=== PATIENT | female | born 1985 | race American Indian/Alaskan Native ===

== ENCOUNTER 2020-11-06 16:28 | Emergency (ER) | payer MEDICAID ==
[2020-11-06 16:36] VITALS: BP 137/82
--- NOTE | 2020-11-06 17:10 | Emergency Department Report ---
ED Abdominal Pain HPI - General Chief Complaint: Abdominal Pain Stated Complaint: ABD PAIN Time Seen by Provider: 11/06/20 16:39 Source: patient Mode of arrival: Ambulatory Limitations: No Limitations - History of Present Illness Initial Comments: pt is a 34 yo female who presents to the ED with c/o lower abdominal cramping since 10/20/2020. she states she had a tubal ligation 10 years ago and is concerned she may be . she states she had two menstrual cycles in September. she states that on oct 20 and she had vaginal spotting but did not have a complete menstrual cycle which she would consider her regular cycle. she states she has occasional nausea. she denies any dysuria, fever, v/d, abnormal vaginal discharge. PMHx none. allergy:sulfa. she has not seen an [facility] for this complaint. - Related Data Previous Rx's Medication Instructions Recorded Last Taken Type methylPREDNISolone [Medrol 4MG 4 mg PO ONCE #1 tab.ds.pk 01/29/20 Unknown Rx DOSEPAK (21 tabs)] traMADoL [Ultram 50 MG tab] 50 mg PO Q6HR PRN #12 tablet 01/29/20 Unknown Rx Naproxen [EC-Naprosyn] 500 mg PO BID PRN #14 tablet. 11/06/20 Unknown Rx Allergies Allergy/AdvReac Type Severity Reaction Status Date / Time Sulfa (Sulfonamide Allergy Hives Verified 01/29/20 10:17 Antibiotics) ED Review of Systems ROS: Stated complaint: ABD PAIN Other details as noted in HPI Comment: All other systems reviewed and negative ED Past Medical Hx - Past Medical History Previous Medical History?: No - Surgical History Past Surgical History?: Yes Additional Surgical History: tubal ligation - Social History Smoking Status: Never Smoker Substance Use Type: None - Medications Home Medications: Home Medications Medication Instructions Recorded Confirmed Last Taken Type methylPREDNISolone [Medrol 4MG 4 mg PO ONCE #1 tab.ds.pk 01/29/20 Unknown Rx DOSEPAK (21 tabs)] traMADoL [Ultram 50 MG tab] 50 mg PO Q6HR PRN #12 tablet 01/29/20 Unknown Rx Naproxen [EC-Naprosyn] 500 mg PO BID PRN #14 tablet. 11/06/20 Unknown Rx ED Physical Exam - General Limitations: No Limitations General appearance: alert, in no apparent distress - Head Head exam: Present: atraumatic, normocephalic - Eye Eye exam: Present: normal appearance - ENT ENT exam: Present: mucous membranes moist - Respiratory Respiratory exam: Present: normal lung sounds bilaterally. Absent: respiratory distress, wheezes, rales, rhonchi, stridor, chest wall tenderness, accessory muscle use, decreased breath sounds, prolonged expiratory - Cardiovascular Cardiovascular Exam: Present: regular rate, normal rhythm, normal heart sounds. Absent: systolic murmur, diastolic murmur, rubs, gallop - GI/Abdominal GI/Abdominal exam: Present: soft, normal bowel sounds. Absent: distended, tenderness, guarding, rebound, rigid - Neurological Exam Neurological exam: Present: alert, oriented X3 - Psychiatric Psychiatric exam: Present: normal affect, normal mood - Skin Skin exam: Present: warm, dry, intact, normal color. Absent: rash ED Course Vital Signs 11/06/20 16:32 Temperature 98.4 F Pulse Rate 87 Respiratory 18 Rate Blood Pressure 137/82 O2 Sat by Pulse 100 Oximetry ED Medical Decision Making - Lab Data Result diagrams: 11/06/20 16:54 11/06/20 16:54 Lab Results 11/06/20 11/06/20 11/06/20 Range/Units 16:54 16:54 16:54 WBC 7.1 (4.5-11.0) K/mm3 RBC 4.17 (3.65-5.03) M/mm3 Hgb 12.7 (10.1-14.3) gm/dl Hct 37.8 (30.3-42.9) % MCV 91 (79-97) fl MCH 30 (28-32) pg MCHC 34 (30-34) % RDW 13.4 (13.2-15.2) % Plt Count 320 (140-440) K/mm3 Lymph % (Auto) 21.7 (13.4-35.0) % [place] % (Auto) 9.3 H (0.0-7.3) % Eos % (Auto) 0.5 (0.0-4.3) % Baso % (Auto) 0.7 (0.0-1.8) % Lymph # (Auto) 1.5 (1.2-5.4) K/mm3 [place] # (Auto) 0.7 (0.0-0.8) K/mm3 Eos # (Auto) 0.0 (0.0-0.4) K/mm3 Baso # (Auto) 0.0 (0.0-0.1) K/mm3 Seg Neutrophils % 67.8 (40.0-70.0) % Seg Neutrophils # 4.8 (1.8-7.7) K/mm3 Sodium 140 (137-145) mmol/L Potassium 3.4 L (3.6-5.0) mmol/L Chloride 107.6 H (98-107) mmol/L Carbon Dioxide 24 (22-30) mmol/L Anion Gap 12 mmol/L BUN 12 (7-17) mg/dL Creatinine 0.7 (0.6-1.2) mg/dL Estimated GFR > 60 ml/min BUN/Creatinine Ratio 17 % Glucose 91 (65-100) mg/dL Calcium 8.5 (8.4-10.2) mg/dL Total Bilirubin 0.80 (0.1-1.2) mg/dL AST 22 (5-40) units/L ALT 13 (7-56) units/L Alkaline Phosphatase 64 (35-129) units/L Total Protein 6.9 (6.3-8.2) g/dL Albumin 3.9 (3.9-5) g/dL Albumin/Globulin Ratio 1.3 % HCG, Quant < 2 (0-4) mIU/mL Urine Color (Yellow) Urine Turbidity (Clear) Urine pH (5.0-7.0) Ur Specific [place] (1.003-1.030) Urine Protein (Negative) mg/dL Urine Glucose (UA) (Negative) mg/dL Urine Ketones (Negative) mg/dL Urine Blood (Negative) Urine Nitrite (Negative) Urine Bilirubin (Negative) Urine Urobilinogen (<2.0) mg/dL Ur Leukocyte Esterase (Negative) Urine WBC (Auto) (0.0-6.0) /HPF Urine RBC (Auto) (0.0-6.0) /HPF U Epithel Cells (Auto) (0-13.0) /HPF Urine Mucus /HPF 11/06/20 Range/Units 17:26 WBC (4.5-11.0) K/mm3 RBC (3.65-5.03) M/mm3 Hgb (10.1-14.3) gm/dl Hct (30.3-42.9) % MCV (79-97) fl MCH (28-32) pg MCHC (30-34) % RDW (13.2-15.2) % Plt Count (140-440) K/mm3 Lymph % (Auto) (13.4-35.0) % [place] % (Auto) (0.0-7.3) % Eos % (Auto) (0.0-4.3) % Baso % (Auto) (0.0-1.8) % Lymph # (Auto) (1.2-5.4) K/mm3 [place] # (Auto) (0.0-0.8) K/mm3 Eos # (Auto) (0.0-0.4) K/mm3 Baso # (Auto) (0.0-0.1) K/mm3 Seg Neutrophils % (40.0-70.0) % Seg Neutrophils # (1.8-7.7) K/mm3 Sodium (137-145) mmol/L Potassium (3.6-5.0) mmol/L Chloride (98-107) mmol/L Carbon Dioxide (22-30) mmol/L Anion Gap mmol/L BUN (7-17) mg/dL Creatinine (0.6-1.2) mg/dL Estimated GFR ml/min BUN/Creatinine Ratio % Glucose (65-100) mg/dL Calcium (8.4-10.2) mg/dL Total Bilirubin (0.1-1.2) mg/dL AST (5-40) units/L ALT (7-56) units/L Alkaline Phosphatase (35-129) units/L Total Protein (6.3-8.2) g/dL Albumin (3.9-5) g/dL Albumin/Globulin Ratio % HCG, Quant (0-4) mIU/mL Urine Color Yellow (Yellow) Urine Turbidity Slightly-cloudy (Clear) Urine pH 5.0 (5.0-7.0) Ur Specific [place] 1.031 H (1.003-1.030) Urine Protein 100 mg/dl (Negative) mg/dL Urine Glucose (UA) Neg (Negative) mg/dL Urine Ketones Tr (Negative) mg/dL Urine Blood Sm (Negative) Urine Nitrite Neg (Negative) Urine Bilirubin Neg (Negative) Urine Urobilinogen < 2.0 (<2.0) mg/dL Ur Leukocyte Esterase Tr (Negative) Urine WBC (Auto) 2.0 (0.0-6.0) /HPF Urine RBC (Auto) 3.0 (0.0-6.0) /HPF U Epithel Cells (Auto) 12.0 (0-13.0) /HPF Urine Mucus 1+ /HPF - Medical Decision Making pt is a 34 yo female who presents to the ED with c/o lower abdominal cramping since 10/20/2020. she states she had a tubal ligation 10 years ago and is concerned she may be . she states she had two menstrual cycles in September. she states that on oct 20 and she had vaginal spotting but did not have a complete menstrual cycle which she would consider her regular cycle. she states she has occasional nausea. she denies any dysuria, fever, v/d, abnormal vaginal discharge. PMHx none. allergy:sulfa. she has not seen an [facility] for this complaint. Vitals are stable. no abdominal tenderness on exam, no guarding, no rebound, no rigidity, normal bowel sounds, no peritoneal signs. Labs are stable, very mild hypokalemia, discussed increasing oral potassium intake. UA without evidence of UTI. hCG quant is less than 2. Patient is presenting for abnormal menstrual cycles, she was concerned that she was , hCG quant is negative. Patient be referred to [facility] for further evaluation. She is having no symptoms of UTI or STD, do not suspect PID. She denies current concerns for STDs. She has no clinical signs of ovarian torsion or tubo-ovarian abscess. Patient does not need emergent ultrasound, will refer to [facility] for outpatient ultrasound. Advised patient please take medication as prescribed as needed. increase your water intake. eat a potassium rich diet. follow up with an [facility]. follow up with a primary care doctor. return to the emergency room for any new or worsening symptoms. - Differential Diagnosis , UTI, fibroids, ovarian cyst, adenomyosis, endometriosis Critical care attestation.: If time is entered above; I have spent that time in minutes in the direct care of this critically ill patient, excluding procedure time. ED Disposition Clinical Impression: Abdominal cramping Disposition: -01 TO HOME OR SELFCARE Is pt being admited?: No Does the pt Need Aspirin: No Condition: Stable Instructions: Abdominal Pain, Adult, Hypokalemia, Abdominal Pain (ED) Additional Instructions: please take medication as prescribed as needed. increase your water intake. eat a potassium rich diet. follow up with an [facility]. follow up with a primary care doctor. return to the emergency room for any new or worsening symptoms. Prescriptions: Naproxen [EC-Naprosyn] 500 mg PO BID PRN #14 tablet.dr BACK Reason: pain Referrals: STAN VALLECILLO MD [Staff Physician] - 2-3 Days [facility] [Provider Group] - 2-3 Days [facility] [Provider Group] - 2-3 Days Time of Disposition: 17:55 Print Language: BULGARIAN
[2020-11-06 17:21] LABS: Basophils % (Auto) 0.7 % (0.0-1.8); Eosinophils % (Auto) 0.5 % (0.0-4.3); Hematocrit 37.8 % (30.3-42.9); Hemoglobin 12.7 gm/dl (10.1-14.3); Lymphocytes # (Auto) 1.5 K/mm3 (1.2-5.4); Lymphocytes % (Auto) 21.7 % (13.4-35.0); Mean Corpuscular HGB Conc 34 % (30-34); Mean Corpuscular Volume 91 fl (79-97); Monocytes # (Auto) 0.7 K/mm3 (0.0-0.8); Monocytes % (Auto) 9.3 % (0.0-7.3); Platelet Count 320 K/mm3 (140-440); Red Blood Count 4.17 M/mm3 (3.65-5.03); Red Cell Distribution Width 13.4 % (13.2-15.2)
[2020-11-06 17:41] LABS: Bilirubin,Urine NEG (Negative); Blood,Urine SM (Negative); Color,Urine Yellow (Yellow); Mucus,Urine 1+ /HPF; Urobilinogen,Urine < 2.0 mg/dL (<2.0)
[2020-11-06 17:43] LABS: Alanine Aminotransferase 13 units/L (7-56); Albumin 3.9 g/dL (3.9-5); BUN/Creatinine Ratio 17; Blood Urea Nitrogen 12 mg/dL (7-17); Calcium 8.5 mg/dL (8.4-10.2); Hemolysis Index 5
== END 2020-11-06 18:16 | disposition home or self-care (01) ==
LOC: ED 16:28
DX: R10.30 Lower abdominal pain, unspecified (principal); Z98.51 Tubal ligation status; Z79.899 Other long term (current) drug therapy; Z88.2 Allergy status to sulfonamides
CPT/HCPCS: 36415; 80053; 81001; 84702; 85025

== ENCOUNTER 2021-01-19 21:25 | Inpatient (IN) | payer MEDICAID ==
[2021-01-19] MEDS ORDERED: dexAMETHasone 20 MG/5 ML VIAL IV ONE (21:29)
[2021-01-19] MEDS ORDERED: diphenhydrAMINE 50 MG/ML VIAL IV ONE (21:29)
[2021-01-19] MEDS ORDERED: ACETAMINOPHEN 500 MG TAB PO ONE (21:29)
[2021-01-19] MEDS ORDERED: METOCLOPRAMIDE 10 MG/2 ML INJ IV ONE (21:29)
--- NOTE | 2021-01-19 21:34 | Event Note ---
ED Screening Note Date of service: 01/19/21 Time: 21:31 ED Screening Note: pt is a 5 y/o aaf with hx of migraine headache , states she was seen by ophthalmology today advised to report to ed for decrease vision and headache onset today, pt state headache is 6/10 sharp radiating to right eye with decreased vision described as "gao and black spot" pt denies fever or chills no trauma, headache is in same location as previous headache in past This initial assessment/diagnostic orders/clinical plan/treatment(s) is/are subject to change based on patients health status, clinical progression and re- assessment by fellow clinical providers in the ED. Further treatment and workup at subsequent clinical providers discretion. Patient/guardian urged not to elope from the ED as their condition may be serious if not clinically assessed and managed. Initial orders include: ct head w/o constrast , decadron, reglan, benadryl, tylenol.
[2021-01-19 21:54] LABS: Basophils # (Auto) 0.1 K/mm3 (0.0-0.1); Basophils % (Auto) 1.1 % (0.0-1.8); Eosinophils % (Auto) 0.7 % (0.0-4.3); Hematocrit 38.6 % (30.3-42.9); Lymphocytes % (Auto) 28.8 % (13.4-35.0); Mean Corpuscular HGB Conc 34 % (30-34); Mean Corpuscular Volume 91 fl (79-97); Monocytes # (Auto) 0.6 K/mm3 (0.0-0.8); Monocytes % (Auto) 8.8 % (0.0-7.3); Platelet Count 381 K/mm3 (140-440); Red Blood Count 4.23 M/mm3 (3.65-5.03); Red Cell Distribution Width 14.1 % (13.2-15.2)
--- NOTE | 2021-01-19 22:11 | Cat Scan Report ---
CT HEAD WITHOUT CONTRAST INDICATION / CLINICAL INFORMATION: Pt complains of headache with decreased vision. TECHNIQUE: All CT scans at this location are performed using CT dose reduction for ALARA by means of automated e xposure control. COMPARISON: None available. FINDINGS: HEMORRHAGE: None. EXTRA-AXIAL SPACES: Normal in size and morphology for the patient's age. VENTRICULAR SYSTEM: Normal in size and morphology for the patient's age. CEREBRAL PARENCHYMA: No significant abnormality. No acute territorial infarct. MIDLINE SHIFT OR HERNIATION: None. CEREBELLUM / BRAINSTEM: No significant abnormality. ORBITS: Normal as visualized. SOFT TISSUES of HEAD: No significant abnormality. CALVARIUM: No significant abnormality. PARANASAL SINUSES / MASTOID AIR CELLS: Normal as visualized. ADDITIONAL FINDINGS: None. IMPRESSION: No acute intracranial abnormality. Signer Name: Ja Sheriff MD Signed: 01/19/2021 10:06 PM Workstation Name: [id number]
--- NOTE | 2021-01-19 22:25 | Emergency Department Report ---
ED Neuro Deficit HPI - General Chief Complaint: Neuro Symptoms/Deficit Stated Complaint: LOSS OF VISION/HEADACHE Time Seen by Provider: 01/19/21 22:11 Source: patient Mode of arrival: Ambulatory Limitations: No Limitations - History of Present Illness Initial Comments: Patient is 35 years old female with no significant past medical history. Patient stated that she was fine until beginning of October when she had painful loss of vision on the left side associated with numbness to the left upper and lower extremity. Patient stated the symptoms continue for few days and went away. She stated that she has been having headache since then. Patient stated that since yesterday she started having pain in her right eye this time associated with numbness of the left upper and lower extremity. Patient denied any head injury. She also denied any focal weakness, no bowel or bladder incontinence. Patient denied any family history of multiple sclerosis. -: days(s), month(s) Location: left arm, left leg History of same: Yes Associated Symptoms: denies other symptoms - Related Data Home Medications: Previous Rx's Medication Instructions Recorded Last Taken Type methylPREDNISolone [Medrol 4MG 4 mg PO ONCE #1 tab.ds.pk 01/29/20 Unknown Rx DOSEPAK (21 tabs)] traMADoL [Ultram 50 MG tab] 50 mg PO Q6HR PRN #12 tablet 01/29/20 Unknown Rx Naproxen [EC-Naprosyn] 500 mg PO BID PRN #14 tablet. 11/06/20 Unknown Rx Allergies/Adverse Reactions: Allergies Allergy/AdvReac Type Severity Reaction Status Date / Time Sulfa (Sulfonamide Allergy Hives Verified 01/29/20 10:17 Antibiotics) ED Review of Systems ROS: Stated complaint: LOSS OF VISION/HEADACHE Other details as noted in HPI Comment: All other systems reviewed and negative Constitutional: denies: chills, fever Respiratory: denies: cough, shortness of breath, SOB with exertion Cardiovascular: denies: chest pain, palpitations Gastrointestinal: denies: abdominal pain, nausea, vomiting, diarrhea Musculoskeletal: denies: back pain Neurological: numbness. denies: headache, weakness, paresthesias, confusion, abnormal gait ED Past Medical Hx - Past Medical History Previous Medical History?: No - Surgical History Past Surgical History?: Yes Additional Surgical History: tubal ligation - Social History Smoking Status: Never Smoker Substance Use Type: None - Medications Home Medications: Home Medications Medication Instructions Recorded Confirmed Last Taken Type methylPREDNISolone [Medrol 4MG 4 mg PO ONCE #1 tab.ds.pk 01/29/20 Unknown Rx DOSEPAK (21 tabs)] traMADoL [Ultram 50 MG tab] 50 mg PO Q6HR PRN #12 tablet 01/29/20 Unknown Rx Naproxen [EC-Naprosyn] 500 mg PO BID PRN #14 tablet. 11/06/20 Unknown Rx ED Neuro Physical Exam - General Limitations: No Limitations General appearance: alert, in no apparent distress Suspected Stroke: No - Head Head exam: Present: atraumatic, normocephalic, normal inspection - Eye Eye exam: Present: normal appearance, PERRL - ENT ENT exam: Present: normal exam, normal orophraynx, mucous membranes moist - Neck Neck exam: Present: normal inspection, full ROM. Absent: tenderness, meningismus - Respiratory Respiratory exam: Present: normal lung sounds bilaterally - Cardiovascular Cardiovascular Exam: Present: regular rate, normal rhythm, normal heart sounds - GI/Abdominal GI/Abdominal exam: Present: soft, normal bowel sounds. Absent: distended, tenderness, guarding, rebound, rigid, organomegaly, mass, bruit, pulsatile mass, hernia - Extremities Exam Extremities exam: Present: normal inspection, full ROM, normal capillary refill. Absent: tenderness, pedal edema, joint swelling, calf tenderness - Back Exam Back exam: Present: normal inspection, full ROM. Absent: CVA tenderness (R), CVA tenderness (L) - Neurological Exam Neurological exam: Present: alert, oriented X3, CN II-XII intact, normal gait, reflexes normal. Absent: motor sensory deficit - Psychiatric Psychiatric exam: Present: normal mood - Skin Skin exam: Present: warm, intact, normal color ED Course Vital Signs 01/19/21 01/19/21 21:28 22:30 Temperature 98.8 F Pulse Rate 90 Respiratory 18 15 Rate Blood Pressure 156/98 O2 Sat by Pulse 99 99 Oximetry - Lab Data Result diagrams: 01/19/21 21:33 01/19/21 21:33 Lab Results 01/19/21 01/19/21 Range/Units 21:33 21:33 WBC 7.0 (4.5-11.0) K/mm3 RBC 4.23 (3.65-5.03) M/mm3 Hgb 13.0 (10.1-14.3) gm/dl Hct 38.6 (30.3-42.9) % MCV 91 (79-97) fl MCH 31 (28-32) pg MCHC 34 (30-34) % RDW 14.1 (13.2-15.2) % Plt Count 381 (140-440) K/mm3 Lymph % (Auto) 28.8 (13.4-35.0) % [place] % (Auto) 8.8 H (0.0-7.3) % Eos % (Auto) 0.7 (0.0-4.3) % Baso % (Auto) 1.1 (0.0-1.8) % Lymph # (Auto) 2.0 (1.2-5.4) K/mm3 [place] # (Auto) 0.6 (0.0-0.8) K/mm3 Eos # (Auto) 0.0 (0.0-0.4) K/mm3 Baso # (Auto) 0.1 (0.0-0.1) K/mm3 Seg Neutrophils % 60.6 (40.0-70.0) % Seg Neutrophils # 4.2 (1.8-7.7) K/mm3 Sodium 140 (137-145) mmol/L Potassium 4.2 (3.6-5.0) mmol/L Chloride 105.0 (98-107) mmol/L Glucose 96 (65-100) mg/dL AST 24 (5-40) units/L ALT 11 (7-56) units/L Total Protein 7.6 (6.3-8.2) g/dL Albumin 3.9 (3.9-5) g/dL Albumin/Globulin Ratio 1.1 % - Radiology Data Radiology results: report reviewed - Medical Decision Making Patient is 35 years old female with no significant past medical history. Patient stated that she was fine until beginning of October when she had painful loss of vision on the left side associated with numbness to the left upper and lower extremity. Patient stated the symptoms continue for few days and went away. She stated that she has been having headache since then. Patient stated that since yesterday she started having pain in her right eye this time associated with numbness of the left upper and lower extremity. Patient denied any head injury. She also denied any focal weakness, no bowel or bladder incontinence. Patient denied any family history of multiple sclerosis. Labs reviewed and is unremarkable. CT brain is negative for acute finding. Patient symptoms is concerning for multiple sclerosis. Patient possibly have optic neuritis on the right side. Also other differential diagnoses include idiopathic intracranial hypertension. Patient received Solu-Medrol, morphine and Zofran. Patient will be admitted to the hospital for multiple sclerosis work-up and further management. I discussed the patient with , he agreed to admit the patient to medical service for further management. Critical care attestation.: If time is entered above; I have spent that time in minutes in the direct care of this critically ill patient, excluding procedure time. ED Disposition Clinical Impression: Acute right eye pain, Numbness on left side, Optic neuritis Disposition: OP ADMIT IP TO THIS HOSP Is pt being admited?: Yes Condition: Stable
[2021-01-19 22:26] LABS: Alanine Aminotransferase 11 units/L (7-56); Albumin 3.9 g/dL (3.9-5)
[2021-01-19] MEDS ORDERED: MORPHINE 4 MG/1 ML INJ IV ONE (22:34)
[2021-01-19] MEDS ORDERED: SODIUM CHLORIDE 0.9% 1000 ML 1,000 ML IV ONE (22:34)
[2021-01-19] MEDS ORDERED: ONDANSETRON 4 MG/2 ML INJ IV ONE (22:34)
[2021-01-19 22:39] LABS: Blood Urea Nitrogen 13 mg/dL (7-17); Calcium 9.4 mg/dL (8.4-10.2); Hemolysis Index 3
[2021-01-19 22:45] LABS: BUN/Creatinine Ratio 19
[2021-01-19] MEDS ORDERED: methylPREDNISolone Sod Suc 500 MG in SODIUM CHLORIDE 0.9% 100 ML IV ONE (23:00)
[2021-01-19] MEDS ORDERED: PROMETHAZINE 25 MG RECT SUPP PR PRN (23:47)
[2021-01-19] MEDS ORDERED: ACETAMINOPHEN 325 MG TAB PO PRN ×2 (23:47)
[2021-01-19] MEDS ORDERED: ONDANSETRON 4 MG/2 ML INJ IV PRN ×2 (23:47)
[2021-01-19] MEDS ORDERED: METOCLOPRAMIDE 10 MG TAB PO PRN (23:47)
[2021-01-19] MEDS ORDERED: MAGNESIUM HYDROXIDE (MOM) ORAL LIQD UDC PO PRN ×2 (23:47)
--- NOTE | 2021-01-20 00:03 | History and Physical Report ---
History of Present Illness Date of examination: 01/19/21 Date of admission: 01/19/2021 Chief complaint: Right eye Pain Left upper extremity numbness History of present illness: 35-year-old -Italian female with no significant past medical problems presenting to the emergency room today with left upper extremity numbness right eye pain. Symptoms were said to have started few days ago but later resolved however symptoms were stated to have started again today. She has been having headache over the past few days and also having right eye pain. Vision has been blurry on the right eye. She also indicates that she has been having a little difficulty with her speech. She denies any difficulty swallowing she denies any cough or shortness of breath, no chest pain, no nausea vomiting, no abdominal pain, no fever or chills, no hematuria or dysuria. Patient denies any sick contacts or any recent travel. Denies any contact with anyone with COVID-19. She had gone to see an radio television announcer regarding visual complaints and patient was encouraged to report to the emergency room for further evaluation. Work-up in the emergency room today including CT scan of the head, were within normal limits. Patient was given some IV steroid. Patient has been admitted for evaluation of her left upper extremity numbness and right eye pain. Consideration for multiple sclerosis is suspected. Past History Past Medical History: No medical history Past Surgical History: Other (Tubal Ligation) Social history: no significant social history Family history: no significant family history Medications and Allergies Allergies Allergy/AdvReac Type Severity Reaction Status Date / Time Sulfa (Sulfonamide Allergy Hives Verified 01/29/20 10:17 Antibiotics) Home Medications Medication Instructions Recorded Confirmed Last Taken Type methylPREDNISolone [Medrol 4MG 4 mg PO ONCE #1 tab.ds.pk 01/29/20 Unknown Rx DOSEPAK (21 tabs)] traMADoL [Ultram 50 MG tab] 50 mg PO Q6HR PRN #12 tablet 01/29/20 Unknown Rx Naproxen [EC-Naprosyn] 500 mg PO BID PRN #14 tablet. 11/06/20 Unknown Rx Active Meds: Active Medications Acetaminophen (Acetaminophen 325 Mg Tab) 650 mg PO Q4H PRN PRN Reason: Pain MILD(1-3)/Fever >100.5/ARAUJO Acetaminophen (Acetaminophen 325 Mg Tab) 650 mg PO Q4H PRN PRN Reason: Pain, Mild (1-3) Aspirin (Aspirin 325 Mg Tab) 325 mg PO QDAY ORI Atorvastatin Calcium (Atorvastatin 40 Mg Tab) 40 mg PO QHS ORI Bisacodyl (Bisacodyl 10 Mg Rect Supp) 10 mg MI QDAY PRN PRN Reason: Constipation Enoxaparin Sodium (Enoxaparin 40 Mg/0.4 Ml Inj) 40 mg SUB-Q QDAY@2200 ORI; Protocol Sodium Chloride (Nacl 0.9% 1000 Ml) 1,000 mls @ 250 mls/hr IV ONCE ONE Stop: 01/20/21 02:33 Last Admin: 01/19/21 22:54 Dose: 250 mls/hr Documented by: Magnesium Hydroxide (Magnesium Hydroxide (Mom) Oral Liqd Udc) 30 ml PO Q4H PRN PRN Reason: Constipation Magnesium Hydroxide (Magnesium Hydroxide (Mom) Oral Liqd Udc) 30 ml PO Q4H PRN PRN Reason: Constipation Metoclopramide HCl (Metoclopramide 10 Mg Tab) 10 mg PO Q6H PRN PRN Reason: Nausea And Vomiting Morphine Sulfate (Morphine 2 Mg/1 Ml Inj) 2 mg IV Q4H PRN PRN Reason: Pain, Moderate (4-6) Ondansetron HCl (Ondansetron 4 Mg/2 Ml Inj) 4 mg IV Q8H PRN PRN Reason: Nausea And Vomiting Ondansetron HCl (Ondansetron 4 Mg/2 Ml Inj) 4 mg IV Q8H PRN PRN Reason: Nausea And Vomiting Promethazine HCl (Promethazine 25 Mg Rect Supp) 25 mg MI Q6H PRN PRN Reason: Nausea And Vomiting Sodium Chloride (Sodium Chloride 0.9% 10 Ml Flush Syringe) 10 ml IV BID ORI Sodium Chloride (Sodium Chloride 0.9% 10 Ml Flush Syringe) 10 ml IV PRN PRN PRN Reason: LINE FLUSH Sodium Chloride (Sodium Chloride 0.9% 10 Ml Flush Syringe) 10 ml INJ PRN PRN PRN Reason: LINE FLUSH Review of Systems Constitutional: no fever, no chills Ears, nose, mouth and throat: no nasal congestion, no sore throat Cardiovascular: no chest pain, no palpitations Respiratory: no cough, no shortness of breath Gastrointestinal: no abdominal pain, no nausea, no vomiting, no diarrhea Genitourinary Female: no pelvic pain, no flank pain, no dysuria, no hematuria Musculoskeletal: no neck pain, no low back pain Integumentary: no rash, no pruritis Neurological: numbness (Left Upper Extremity), headaches, change in speech, loss of vision (Right Eye) Psychiatric: no anxiety, no depression Endocrine: no polyphagia, no polydipsia, no polyuria, no nocturia Exam - Constitutional Vitals: Temp Pulse Resp BP Pulse Ox 98.8 F 90 15 156/98 99 01/19/21 21:28 01/19/21 21:28 01/19/21 22:30 01/19/21 21:28 01/19/21 22:30 General appearance: Present: no acute distress, well-nourished - EENT Eyes: Present: PERRL, EOM intact. Absent: scleral icterus ENT: hearing intact, clear oral mucosa, dentition normal - Neck Neck: Present: supple, normal ROM - Respiratory Respiratory effort: normal Respiratory: bilateral: CTA - Cardiovascular Rhythm: regular Heart Sounds: Present: S1 & S2. Absent: gallop, systolic murmur, diastolic murmur, rub, click - Extremities Extremities: no ischemia, pulses intact, pulses symmetrical, No edema, normal temperature, normal color, Full ROM Peripheral Pulses: within normal limits - Abdominal General gastrointestinal: Present: soft, non-tender, non-distended, normal bowel sounds. Absent: mass - Integumentary Integumentary: Present: clear, warm, dry, normal turgor. Absent: rash - Musculoskeletal Musculoskeletal: strength equal bilaterally - Psychiatric Psychiatric: appropriate mood/affect, intact judgment & insight, memory intact - Neurologic Neurologic: CNII-XII intact, no focal deficits, moves all extremities Results - Labs CBC & Chem 7: 01/19/21 21:33 01/19/21 21:33 Labs: Abnormal lab results 01/19/21 Range/Units 21:33 [place] % (Auto) 8.8 H (0.0-7.3) % Assessment and Plan - Patient Problems (1) Optic neuritis Current Visit: No Status: Acute Plan to address problem: Patient commenced on IV steroids and analgesic medication. We will schedule patient for carotid Doppler, echocardiogram and MRI of the brain. (2) Numbness on left side Current Visit: No Status: Acute Plan to address problem: Etiology unclear. Will rule out CVA versus multiple sclerosis. Patient commenced on daily aspirin. Will await carotid Doppler, echocardiogram and MRI of the brain. Consult placed to neurology for evaluation. (3) DVT prophylaxis Current Visit: No Status: Acute Plan to address problem: Patient placed on subcutaneous Lovenox. (4) Full code status Current Visit: No Status: Acute Plan to address problem: Patient is a full code.
[2021-01-20] MEDS: MORPHINE 2 MG/1 ML INJ IV PRN ×3 (08:14→20:44)
--- NOTE | 2021-01-20 09:39 | Consultation ---
History of Present Illness Consult date: 01/20/21 Reason for Consult: Left Arm Weakness Chief complaint: Right Eye Pain and Left-sided weakness History of present illness: Patient is not in room during rounds. Past History Past Medical History: No medical history Past Surgical History: Other (Tubal Ligation) Social history: no significant social history Family history: no significant family history Medications and Allergies Allergies Allergy/AdvReac Type Severity Reaction Status Date / Time Sulfa (Sulfonamide Allergy Hives Verified 01/29/20 10:17 Antibiotics) Home Medications Medication Instructions Recorded Confirmed Last Taken Type methylPREDNISolone [Medrol 4MG 4 mg PO ONCE #1 tab.ds.pk 01/29/20 Unknown Rx DOSEPAK (21 tabs)] traMADoL [Ultram 50 MG tab] 50 mg PO Q6HR PRN #12 tablet 01/29/20 Unknown Rx Naproxen [EC-Naprosyn] 500 mg PO BID PRN #14 tablet. 11/06/20 Unknown Rx Active Meds: Active Medications Acetaminophen (Acetaminophen 325 Mg Tab) 650 mg PO Q4H PRN PRN Reason: Pain MILD(1-3)/Fever >100.5/ARAUJO Aspirin (Aspirin 325 Mg Tab) 325 mg PO QDAY ORI Atorvastatin Calcium (Atorvastatin 40 Mg Tab) 40 mg PO QHS ORI Bisacodyl (Bisacodyl 10 Mg Rect Supp) 10 mg NE QDAY PRN PRN Reason: Constipation Enoxaparin Sodium (Enoxaparin 40 Mg/0.4 Ml Inj) 40 mg SUB-Q QDAY@2200 ORI; Protocol Magnesium Hydroxide (Magnesium Hydroxide (Mom) Oral Liqd Udc) 30 ml PO Q4H PRN PRN Reason: Constipation Metoclopramide HCl (Metoclopramide 10 Mg Tab) 10 mg PO Q6H PRN PRN Reason: Nausea And Vomiting Morphine Sulfate (Morphine 2 Mg/1 Ml Inj) 2 mg IV Q4H PRN PRN Reason: Pain, Moderate (4-6) Last Admin: 01/20/21 08:14 Dose: 2 mg Documented by: Ondansetron HCl (Ondansetron 4 Mg/2 Ml Inj) 4 mg IV Q8H PRN PRN Reason: Nausea And Vomiting Promethazine HCl (Promethazine 25 Mg Rect Supp) 25 mg NE Q6H PRN PRN Reason: Nausea And Vomiting Sodium Chloride (Sodium Chloride 0.9% 10 Ml Flush Syringe) 10 ml IV BID ORI Sodium Chloride (Sodium Chloride 0.9% 10 Ml Flush Syringe) 10 ml IV PRN PRN PRN Reason: LINE FLUSH Physical Examination - Vital Signs Vital Signs: Vital Signs Temp Pulse Resp BP Pulse Ox 98.8 F 90 18 156/98 99 01/19/21 21:28 01/19/21 21:28 01/19/21 21:28 01/19/21 21:28 01/19/21 21:28 - Physical Exam Narrative exam: Patient is not in room during rounds. Results - Laboratory Findings CBC and BMP: 01/19/21 21:33 01/19/21 21:33 Abnormal Lab Findings: Abnormal Labs 01/19/21 21:33 [place] % (Auto) 8.8 H Assessment and Plan 35 yo female with headache with right eye pain and left-sided weakness. 1. Patient is not in room during rounds. If test is negative, recommend MRI Brain w/ wo contrast, MRV Head w/o contrast to r/o a cortical vein thrombosis and cta head/neck w/ wo contrast since ddx includes stroke, ms, neoplasm, vst/cvt, acephalgic migraine. 2. Recommend ophthalmology evaluation of right eye visual change. Branden Ramos MD Neurology
--- NOTE | 2021-01-20 11:16 | Cat Scan Report ---
CTA NECK WITH CONTRAST HISTORY: Stroke COMPARISON: None. TECHNIQUE: Routine CTA of the neck was performed. 3-D/MIP reformats were postprocessed. Percentage s tenosis is determined by direct quantitative measurements of diseased internal carotid artery diamete r compared with normal distal internal carotid artery reference segments or by criteria similar to NA SCET where applicable.All CT scans at this location are performed using CT dose reduction for ALARA b y means of automated exposure control CONTRAST: 100 ml of Omnipaque 300 FINDINGS: Aortic arch: No significant abnormality. Cervical vertebral arteries: No significant abnormality. Common carotid arteries: No significant abnormality. Carotid bifurcations: Normal Cervical internal carotid arteries: No significant abnormality. Additional findings: None. IMPRESSION: 1. No significant abnormality. Signer Name: Brant Mcgarry MD Signed: 01/20/2021 11:12 AM Workstation Name: [id number]
[2021-01-20] MEDS: ASPIRIN 325 MG TAB PO SCH (11:17)
--- NOTE | 2021-01-20 11:20 | Cat Scan Report ---
CTA HEAD WITH CONTRAST HISTORY: Left arm numbness; blurry vision for 3 days COMPARISON: None. TECHNIQUE: Routine non-contrast CT Head, CTA of the head and post-contrast CT Head are performed. 3-D /MIP reformats postprocessed. All CT scans at this location are performed using CT dose reduction for ALARA by means of automated exposure control CONTRAST: 100 ml of Omnipaque 350 FINDINGS: CTA Head: Intracranial vertebral arteries: No significant abnormality. Basilar artery: No significant abnormality. Posterior cerebral arteries: No significant abnormality. Intracranial internal carotid arteries: No significant abnormality. Anterior cerebral arteries: No significant abnormality. Middle cerebral arteries: No significant abnormality. Dural venous sinuses:Not optimally opacified. No significant abnormality. Additional findings: None. IMPRESSION: 1. No significant abnormality. Signer Name: Brant Mcgarry MD Signed: 01/20/2021 11:16 AM Workstation Name: [id number]
--- NOTE | 2021-01-20 11:25 | Magnetic Resonance Report ---
MRA HEAD WITHOUT CONTRAST HISTORY: Left arm numbness; blurry vision COMPARISON: None. TECHNIQUE: Routine MRA of the head is performed. 3-D/MIP reformats postprocessed. CONTRAST: None. FINDINGS: Intracranial vertebral arteries: No significant abnormality. Basilar artery: No significant abnormality. Posterior cerebral arteries: No significant abnormality. Intracranial internal carotid arteries: No significant abnormality. Anterior cerebral arteries: No significant abnormality. Middle cerebral arteries: No significant abnormality. Variants and anomalies:None Additional findings: None. IMPRESSION: No significant abnormality. Signer Name: Brant Mcgarry MD Signed: 01/20/2021 11:20 AM Workstation Name: [id number]
--- NOTE | 2021-01-20 11:35 | Magnetic Resonance Report ---
NONENHANCED and contrast-enhanced MR SCAN OF THE BRAIN: INDICATION / CLINICAL INFORMATION: left upper extremity numbness, right eye pain. TECHNIQUE: Multiplanar, multisequence MR images of the brain obtained before and after 16 mL of Clariscan COMPARISON: CT scan of the head from 01/19/2021 FINDINGS: ABNORMAL MRI SCAN BRAIN / INTRACRANIAL CONTENTS: No acute ischemia, acute hemorrhage, mass effect, midline shift, or hy drocephalus. No chronic infarct or atrophy. WHITE MATTER LESIONS: T2 hyperintense white matter lesions: Periventricular: More than 5 lesions contacting the ependymal surface Juxtacortical: Present in the right superior frontal gyrus Infratentorial: Present involving the anthony anteriorly on the right side, left middle cerebellar pedun kunal Optic nerves: In the transverse FLAIR images, there is suggestion of optic nerve lesion on the right side. We did not obtain FLAIR coronal or sagittal images. Cervicomedullary junction: No lesion in the cervicomedullary junction in the transverse FLAIR and T2- weighted images Enhancing lesions: None Lesions with restricted diffusion: None Overall disease burden: more than 20 lesions Parenchymal atrophy: No focal, regional or generalized volume loss Callosal atrophy: Not present T 1 black holes: Present around multiple lesions CRANIOCERVICAL JUNCTION: No significant abnormality. VASCULAR FLOW-VOIDS: No significant abnormality. ORBITS: Increased FLAIR signal intensity in the right optic nerve SINUSES / MASTOIDS: No significant abnormality of visualized sinuses and mastoid air cells. ADDITIONAL FINDINGS: None. IMPRESSION: 1. MR findings are consistent with demyelinating plaques No acute/subacute infarction Signer Name: Brant Mcgarry MD Signed: 01/20/2021 11:31 AM Workstation Name: [id number]
--- NOTE | 2021-01-20 12:53 | Progress Note ---
Assessment and Plan Assessment and plan: Neuro work-up so far: MRI brain; demyelinating plaques, no acute or subacute infarcts MRA head; no abnormality CT head without contrast; no acute abnormality. Carotid Doppler; less than 50% stenosis echo; EF 55 to 60%, no PFO CTA head; no abnormality CTA neck; no abnormality Right eye pain /?optic neuritis Current Visit: No Status: Acute Plan to address problem: Patient commenced on IV steroids and analgesic medication. Neurology following , neuro work-up is in progress Do not have ophthalmology service, will refer to steam service inspector After neuro evaluation is completed and if indicated Numbness and weakness on left side Current Visit: No Status: Acute Plan to address problem: Rule out CVA versus multiple sclerosis. Not a candidate for TPA Aspirin and statin Follow carotid Doppler, echocardiogram and MRI, MRA of the brain. Management per neurology PT OT rehab DVT prophylaxis Current Visit: No Status: Acute Plan to address problem: Patient placed on subcutaneous Lovenox. Full code status Current Visit: No Status: Acute Plan to address problem: Patient is a full code. We will closely monitor the patient and adjust management as needed Plan of care reviewed with the patient and her nurse Follow neuro evaluation and recommendations Disposition; follow neuro work-up; follow PT OT, follow neurology recom mendations 01/20/2021; patient feels slightly better Follow neuro evaluation and recommendations , extensive neuro work-up is in progress Continue supportive care, patient needs ophthalmology evaluation[service not available] Brief history; Patient is 35 years old female with no significant past medical history. Patient stated that she was fine until beginning of October when she had painful loss of vision on the left side associated with numbness to the left upper and lower extremity. Patient stated the symptoms continue for few days and went away. She stated that she has been having headache since then. Patient stated that since yesterday she started having pain in her right eye this time associated with numbness of the left upper and lower extremity. Patient denied any head injury. She also denied any focal weakness, no bowel or bladder incontinence. History Interval history: I have seen and examined the patient at the bedside this morning Patient's chart and medications reviewed Patient feels slightly better, Patient complains of headache right eye pain and left-sided weakness Neuro work-up is in progress Vital signs noted Hospitalist Physical - Constitutional Vitals: Temp Pulse Resp BP Pulse Ox 98.0 F 52 L 16 121/68 97 01/20/21 03:17 01/20/21 03:17 01/20/21 03:17 01/20/21 03:17 01/20/21 03:17 General appearance: Present: no acute distress, well-nourished - EENT Eyes: Absent: scleral icterus, conjunctival injection (Photophobia, pain) - Neck Neck: Present: supple, normal ROM - Respiratory Respiratory effort: normal Respiratory: bilateral: diminished, negative: rales, rhonchi, wheezing - Cardiovascular Rhythm: regular Heart Sounds: Present: S1 & S2 - Extremities Extremities: no ischemia, No edema - Abdominal General gastrointestinal: soft, non-tender, non-distended, normal bowel sounds - Integumentary Integumentary: Present: clear, warm - Psychiatric Psychiatric: appropriate mood/affect, cooperative - Neurologic Neurologic: moves all extremities Results - Labs CBC & Chem 7: 01/20/21 16:11 01/20/21 16:11 Labs: Laboratory Last Values WBC 7.0 K/mm3 (4.5-11.0) 01/19/21 21:33 RBC 4.23 M/mm3 (3.65-5.03) 01/19/21 21:33 Hgb 13.0 gm/dl (10.1-14.3) 01/19/21 21:33 Hct 38.6 % (30.3-42.9) 01/19/21 21:33 MCV 91 fl (79-97) 01/19/21 21:33 MCH 31 pg (28-32) 01/19/21 21:33 MCHC 34 % (30-34) 01/19/21 21:33 RDW 14.1 % (13.2-15.2) 01/19/21 21:33 Plt Count 381 K/mm3 (140-440) 01/19/21 21:33 Lymph % (Auto) 28.8 % (13.4-35.0) 01/19/21 21:33 Petroleum % (Auto) 8.8 % (0.0-7.3) H 01/19/21 21:33 Eos % (Auto) 0.7 % (0.0-4.3) 01/19/21 21:33 Baso % (Auto) 1.1 % (0.0-1.8) 01/19/21 21:33 Lymph # (Auto) 2.0 K/mm3 (1.2-5.4) 01/19/21 21:33 Petroleum # (Auto) 0.6 K/mm3 (0.0-0.8) 01/19/21 21:33 Eos # (Auto) 0.0 K/mm3 (0.0-0.4) 01/19/21 21:33 Baso # (Auto) 0.1 K/mm3 (0.0-0.1) 01/19/21 21:33 Seg Neutrophils % 60.6 % (40.0-70.0) 01/19/21 21: Seg Neutrophils # 4.2 K/mm3 (1.8-7.7) 01/19/21 21:33 Sodium 140 mmol/L (137-145) 01/19/21 21: Potassium 4.2 mmol/L (3.6-5.0) 01/19/21 21: Chloride 105.0 mmol/L (98-107) 01/19/21 21: Carbon Dioxide 25 mmol/L (22-30) 01/19/21 21: Anion Gap 14 mmol/L 01/19/21 21:33 BUN 13 mg/dL (7-17) 01/19/21 21: Creatinine 0.7 mg/dL (0.6-1.2) 01/19/21 21:33 Estimated GFR > 60 ml/min 01/19/21 21:33 BUN/Creatinine Ratio 19 % 01/19/21 21: Glucose 96 mg/dL (65-100) 01/19/21 21: Calcium 9.4 mg/dL (8.4-10.2) 01/19/21 21: Total Bilirubin 0.40 mg/dL (0.1-1.2) 01/19/21 21: AST 24 units/L (5-40) 01/19/21 21: ALT 11 units/L (7-56) 01/19/21 21:33 Alkaline Phosphatase 72 units/L (35-129) 01/19/21 21:33 Total Protein 7.6 g/dL (6.3-8.2) 01/19/21 21:33 Albumin 3.9 g/dL (3.9-5) 05/04/21 21:33 Albumin/Globulin Ratio 1.1 % 01/19/21 21:33 Klein/IV: Voiding Method Toilet Active Medications - Current Medications Current Medications: Generic Name Dose Route Start Last Admin Trade Name Freq PRN Reason Stop Dose Admin Acetaminophen 650 mg 01/19/21 23:47 Acetaminophen 325 Mg Tab PO Q4H PRN Pain MILD(1-3)/Fever >100.5/ARAUJO Aspirin 325 mg 01/20/21 10:00 01/20/21 11:17 Aspirin 325 Mg Tab PO 325 mg QDAY ORI Administration Atorvastatin Calcium 40 mg 01/20/21 22:00 Atorvastatin 40 Mg Tab PO QHS ORI Bisacodyl 10 mg 01/19/21 23:47 Bisacodyl 10 Mg Rect Supp SD QDAY PRN Constipation Enoxaparin Sodium 40 mg 01/20/21 22:00 Enoxaparin 40 Mg/0.4 Ml Inj SUB-Q QDAY@2200 [facility] Protocol Magnesium Hydroxide 30 ml 01/19/21 23:47 Magnesium Hydroxide (Mom) Oral Liqd Udc PO Q4H PRN Constipation Metoclopramide HCl 10 mg 01/19/21 23:47 Metoclopramide 10 Mg Tab PO Q6H PRN Nausea And Vomiting Morphine Sulfate 2 mg 01/19/21 23:47 01/20/21 08:14 Morphine 2 Mg/1 Ml Inj IV 2 mg Q4H PRN Administration Pain, Moderate (4-6) Ondansetron HCl 4 mg 01/19/21 23:47 Ondansetron 4 Mg/2 Ml Inj IV Q8H PRN Nausea And Vomiting Promethazine HCl 25 mg 01/19/21 23:47 Promethazine 25 Mg Rect Supp SD Q6H PRN Nausea And Vomiting Sodium Chloride 10 ml 01/20/21 10:00 01/20/21 11:17 Sodium Chloride 0.9% 10 Ml Flush Syringe IV 10 ml BID ORI Administration Sodium Chloride 10 ml 01/19/21 23:47 Sodium Chloride 0.9% 10 Ml Flush Syringe IV PRN PRN LINE FLUSH
--- NOTE | 2021-01-20 13:27 | Vascular Lab Report ---
"DUPLEX DOPPLER ULTRASOUND CAROTID, BILATERAL INDICATION / CLINICAL INFORMATION: stroke. COMPARISON: None available. FINDINGS: RIGHT CAROTID: - PLAQUE ESTIMATE (%): < 50% - CCA velocity: 82 cm/sec. - ICA peak systolic velocity: 106 cm/sec. - ICA/CCA PSV Ratio: 1.3 Right Vertebral Artery: Antegrade flow. LEFT CAROTID: - PLAQUE ESTIMATE: < 50% - CCA velocity: 71 cm/sec. - ICA peak systolic velocity: 107 cm/sec. - ICA/CCA PSV Ratio: 1.5 Left Vertebral Artery: Antegrade flow. IMPRESSION: 1. Right Internal Carotid Artery: Less than 50% diameter stenosis. 2. Left Internal Carotid Artery: Less than 50% diameter stenosis. Velocity criteria are extrapolated from diameter data as defined by the Society of Radiologists in [facility] Consensus Conference, Radiology 2003; 229;340-346. Degree of || ICA PSV || Plaque || ICA/CCA Stenosis (%) || (cm/sec) || estimate (%) || PSV Ratio Normal ............. || ...<125........... || ...None......... || ...<2.0 <50................... || ...<125........... || ......<50......... || ...<2.0 50-69................ || ..125-230...... || ......>50......... || 2.0-4.0 >70 but <100... || >230.............. || .......>50........ || ...>4.0 Near occlusion || High/low/none || ...visible....... || variable Total occlusion || ....None........... || ..no lumen... || ....N/A Signer Name: Santi LÓPEZ Signed: 01/20/2021 1:22 PM Workstation Name: [id number]
[2021-01-20 17:07] LABS: Hemoglobin 12.9 gm/dl (10.1-14.3); Mean Corpuscular HGB Conc 34 % (30-34); Mean Corpuscular Volume 91 fl (79-97); Platelet Count 351 K/mm3 (140-440); Red Blood Count 4.19 M/mm3 (3.65-5.03); Red Cell Distribution Width 14.4 % (13.2-15.2)
[2021-01-20 17:16] LABS: INR 0.97 (0.87-1.13)
[2021-01-20 18:10] LABS: Blood Urea Nitrogen 11 mg/dL (7-17); Calcium 9.2 mg/dL (8.4-10.2); Chol/HDL Ratio 2.37 %; HDL Cholesterol 82 mg/dL (40-59); Hemolysis Index 5; LDL Cholesterol,Direct 120 mg/dL (50-130)
[2021-01-20 18:13] LABS: Giant Platelets Rare; RBC Morphology Normal; Total Cells Counted 100
[2021-01-20 18:15] LABS: BUN/Creatinine Ratio 18
[2021-01-20 19:30] LABS: Erythrocyte Sedimentation Rate 39 mm/Hr (0-20)
[2021-01-20] MEDS: ENOXAPARIN 40 MG/0.4 ML INJ SUB-Q SCH (21:28)
[2021-01-20 22:04] LABS: HCG Qualitative,Urine Negative (Negative)
[2021-01-21] MEDS: MORPHINE 2 MG/1 ML INJ IV PRN ×5 (01:18→22:26)
[2021-01-21] MEDS: ASPIRIN 325 MG TAB PO SCH (09:47)
--- NOTE | 2021-01-21 11:13 | Progress Note ---
Assessment and Plan Assessment and plan: Assessment and Plan Assessment and plan: Neuro work-up so far: MRI brain; demyelinating plaques, no acute or subacute infarcts MRA head; no abnormality CT head without contrast; no acute abnormality. Carotid Doppler; less than 50% stenosis echo; EF 55 to 60%, no PFO CTA head; no abnormality CTA neck; no abnormality Right eye pain /?optic neuritis Current Visit: No Status: Acute Plan to address problem: Patient commenced on IV steroids and analgesic medication. 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 Not a candidate for TPA Aspirin and statin Follow carotid Doppler, echocardiogram and MRI, MRA of the brain. Management per neurology PT OT rehab DVT prophylaxis Current Visit: No Status: Acute Plan to address problem: Patient placed on subcutaneous Lovenox. Full code status Current Visit: No Status: Acute Plan to address problem: Patient is a full code. We will closely monitor the patient and adjust management as needed Plan of care reviewed with the patient and her nurse Follow neuro evaluation and recommendations Disposition; follow neuro work-up; follow PT OT, follow neurology recommendations 01/20/2021; patient feels slightly better Follow neuro evaluation and recommendations , extensive neuro work-up is in progress Continue supportive care, patient needs ophthalmology evaluation[service not available] 01/21/21 Patient complaining of difficulty in swallow. Speech path is consulted Also complaining of right eye pain and difficulty vision, left-sided blurry vision, left-sided numbness Follow neuro evaluation and recommendation. Call neurologist for further recommendation. Continue current management. Patient needs ophthalmology evaluation but service not available. Brief history; Patient is 35 years old female with no significant past medical history. Patient stated that she was fine until beginning of October when she had painful loss of vision on the left side associated with numbness to the left upper and lower extremity. Patient stated the symptoms continue for few days and went away. She stated that she has been having headache since then. Patient stated that since yesterday she started having pain in her right eye this time associated with numbness of the left upper and lower extremity. Patient denied any head injury. She also denied any focal weakness, no bowel or bladder incontinence. History Interval history: Patient is seen and examined the patient at the bedside this morning Patient's chart and medications reviewed Patient complained of difficulty in swallowing, speech path is consulted right eye pain and vision change, left-sided blurry vision and left-sided numbness Neuro work-up is in progress Vital signs noted Hospitalist Physical - Constitutional Vitals: Temp Pulse Resp BP Pulse Ox 98.2 F 57 L 14 137/68 97 01/21/21 03:54 01/20/21 16:46 01/21/21 03:54 01/21/21 03:54 01/20/21 16:46 General appearance: Present: no acute distress, well-nourished Results - Labs CBC & Chem 7: 01/20/21 16:11 01/20/21 16:11 Labs: Laboratory Last Values WBC 8.2 K/mm3 (4.5-11.0) 01/20/21 16:11 RBC 4.19 M/mm3 (3.65-5.03) 01/20/21 16:11 Hgb 12.9 gm/dl (10.1-14.3) 01/20/21 16:11 Hct 38.0 % (30.3-42.9) 01/20/21 16:11 MCV 91 fl (79-97) 01/20/21 16:11 MCH 31 pg (28-32) 01/20/21 16:11 MCHC 34 % (30-34) 01/20/21 16:11 RDW 14.4 % (13.2-15.2) 01/20/21 16:11 Plt Count 351 K/mm3 (140-440) 01/20/21 16:11 Lymph % (Auto) 28.8 % (13.4-35.0) 01/19/21 21:33 [place] % (Auto) 8.8 % (0.0-7.3) H 01/19/21 21:33 Eos % (Auto) 0.7 % (0.0-4.3) 01/19/21 21:33 Baso % (Auto) 1.1 % (0.0-1.8) 01/19/21 21:33 Lymph # (Auto) 2.0 K/mm3 (1.2-5.4) 01/19/21 21:33 [place] # (Auto) 0.6 K/mm3 (0.0-0.8) 01/19/21 21:33 Eos # (Auto) 0.0 K/mm3 (0.0-0.4) 01/19/21 21:33 Baso # (Auto) 0.1 K/mm3 (0.0-0.1) 01/19/21 21:33 Add Manual Diff Complete 01/20/21 16:11 Total Counted 100 01/20/21 16:11 Seg Neutrophils % Deputy Administrator 01/20/21 16:11 Seg Neuts % (Manual) 85.0 % (40.0-70.0) H 01/20/21 16:11 Lymphocytes % (Manual) 11.0 % (13.4-35.0) L 01/20/21 16:11 Monocytes % (Manual) 4.0 % (0.0-7.3) 01/20/21 16:11 Nucleated RBC % Not Reportable 01/20/21 16:11 Seg Neutrophils # 4.2 K/mm3 (1.8-7.7) 01/19/21 21:33 Seg Neutrophils # Man 7.0 K/mm3 (1.8-7.7) 01/20/21 16:11 Band Neutrophils # 0.0 K/mm3 01/20/21 16:11 Lymphocytes # (Manual) 0.9 K/mm3 (1.2-5.4) L 01/20/21 16:11 Abs React Lymphs (Man) 0.0 K/mm3 01/20/21 16:11 Monocytes # (Manual) 0.3 K/mm3 (0.0-0.8) 01/20/21 16:11 Eosinophils # (Manual) 0.0 K/mm3 (0.0-0.4) 01/20/21 16:11 Basophils # (Manual) 0.0 K/mm3 (0.0-0.1) 01/20/21 16:11 Metamyelocytes # 0.0 K/mm3 01/20/21 16:11 Myelocytes # 0.0 K/mm3 01/20/21 16:11 Promyelocytes # 0.0 K/mm3 01/20/21 16:11 Blast Cells # 0.0 K/mm3 01/20/21 16:11 WBC Morphology Not Reportable 01/20/21 16:11 Hypersegmented Neuts Not Reportable 01/20/21 16:11 Hyposegmented Neuts Not Reportable 01/20/21 16:11 Hypogranular Neuts Not Reportable 01/20/21 16:11 Smudge Cells Not Reportable 01/20/21 16:11 Toxic Granulation Not Reportable 01/20/21 16:11 Toxic Vacuolation Not Reportable 01/20/21 16:11 Dohle Bodies Not Reportable 01/20/21 16:11 Pelger-Huet Anomaly Not Reportable 01/20/21 16:11 Gabino Rods Not Reportable 01/20/21 16:11 Platelet Estimate Not Reportable 01/20/21 16:11 Clumped Platelets Not Reportable 01/20/21 16:11 Plt Clumps, EDTA Not Reportable 01/20/21 16:11 Large Platelets Not Reportable 01/20/21 16:11 Giant Platelets Rare 01/20/21 16:11 Platelet Satelliting Not Reportable 01/20/21 16:11 Plt Morphology Comment Not Reportable 01/20/21 16:11 RBC Morphology Normal 01/20/21 16:11 Dimorphic RBCs Not Reportable 01/20/21 16:11 Polychromasia Not Reportable 01/20/21 16:11 Hypochromasia Not Reportable 01/20/21 16:11 Poikilocytosis Not Reportable 01/20/21 16:11 Anisocytosis Not Reportable 01/20/21 16:11 Microcytosis Not Reportable 01/20/21 16:11 Macrocytosis Not Reportable 01/20/21 16:11 Spherocytes Not Reportable 01/20/21 16:11 Pappenheimer Bodies Not Reportable 01/20/21 16:11 Sickle Cells Not Reportable 01/20/21 16:11 Target Cells Not Reportable 01/20/21 16:11 Tear Drop Cells Not Reportable 01/20/21 16:11 Ovalocytes Not Reportable 01/20/21 16:11 Helmet Cells Not Reportable 01/20/21 16:11 [place] Bodies Not Reportable 01/20/21 16:11 [place] Rings Not Reportable 01/20/21 16:11 [place] Cells Not Reportable 01/20/21 16:11 Bite Cells Not Reportable 01/20/21 16:11 Crenated Cell Not Reportable 01/20/21 16:11 Elliptocytes Not Reportable 01/20/21 16:11 Acanthocytes (Spur) Not Reportable 01/20/21 16:11 Rouleaux Not Reportable 01/20/21 16:11 Hemoglobin C Crystals Not Reportable 01/20/21 16:11 Schistocytes Not Reportable 01/20/21 16:11 Malaria parasites Not Reportable 01/20/21 16:11 ESR 39 mm/Hr (0-20) 01/20/21 16:11 Mich Bodies Not Reportable 01/20/21 16:11 Hem Pathologist Commnt No 01/20/21 16:11 PT 12.8 Sec. (12.2-14.9) 01/20/21 16:11 INR 0.97 (0.87-1.13) 01/20/21 16:11 Sodium 138 mmol/L (137-145) 01/20/21 16:11 Potassium 4.3 mmol/L (3.6-5.0) 01/20/21 16:11 Chloride 102.7 mmol/L (98-107) 01/20/21 16:11 Carbon Dioxide 20 mmol/L (22-30) L 01/20/21 16:11 Anion Gap 20 mmol/L 01/20/21 16:11 BUN 11 mg/dL (7-17) 01/20/21 16:11 Creatinine 0.6 mg/dL (0.6-1.2) 01/20/21 16:11 Estimated GFR > 60 ml/min 01/20/21 16:11 BUN/Creatinine Ratio 18 % 01/20/21 16:11 Glucose 111 mg/dL (65-100) H 01/20/21 16:11 Calcium 9.2 mg/dL (8.4-10.2) 01/20/21 16:11 Total Bilirubin 0.40 mg/dL (0.1-1.2) 01/19/21 21:33 AST 24 units/L (5-40) 01/19/21 21:33 ALT 11 units/L (7-56) 01/19/21 21:33 Alkaline Phosphatase 72 units/L (35-129) 01/19/21 21:33 Total Protein 7.6 g/dL (6.3-8.2) 01/19/21 21:33 Albumin 3.9 g/dL (3.9-5) 01/19/21 21:33 Albumin/Globulin Ratio 1.1 % 01/19/21 21:33 Triglycerides 41 mg/dL (2-149) 01/20/21 16:11 Cholesterol 195 mg/dL (50-199) 01/20/21 16:11 LDL Cholesterol Direct 120 mg/dL (50-130) 01/20/21 16:11 HDL Cholesterol 82 mg/dL (40-59) H 01/20/21 16:11 Cholesterol/HDL Ratio 2.37 % 01/20/21 16:11 Urine HCG, Qual Negative (Negative) 01/19/21 21:46 - Imaging and Cardiology MRI - head: image reviewed Klein/IV: Voiding Method Toilet Active Medications - Current Medications Current Medications: Generic Name Dose Route Start Last Admin Trade Name Freq PRN Reason Stop Dose Admin Acetaminophen 650 mg 01/19/21 23:47 Acetaminophen 325 Mg Tab PO Q4H PRN Pain MILD(1-3)/Fever >100.5/ARAUJO Aspirin 325 mg 01/20/21 10:00 01/21/21 09:47 Aspirin 325 Mg Tab PO 325 mg QDAY ORI Administration Atorvastatin Calcium 40 mg 01/20/21 22:00 01/20/21 21:28 Atorvastatin 40 Mg Tab PO 40 mg QHS ORI Administration Bisacodyl 10 mg 01/19/21 23:47 Bisacodyl 10 Mg Rect Supp [place] QDAY PRN Constipation Enoxaparin Sodium 40 mg 01/20/21 22:00 01/20/21 21:28 Enoxaparin 40 Mg/0.4 Ml Inj SUB-Q 40 mg QDAY@2200 ORI Administration Protocol Magnesium Hydroxide 30 ml 01/19/21 23:47 Magnesium Hydroxide (Mom) Oral Liqd Udc PO Q4H PRN Constipation Metoclopramide HCl 10 mg 01/19/21 23:47 Metoclopramide 10 Mg Tab PO Q6H PRN Nausea And Vomiting Morphine Sulfate 2 mg 01/19/21 23:47 01/21/21 08:17 Morphine 2 Mg/1 Ml Inj IV 2 mg Q4H PRN Administration Pain, Moderate (4-6) Ondansetron HCl 4 mg 01/19/21 23:47 Ondansetron 4 Mg/2 Ml Inj IV Q8H PRN Nausea And Vomiting Promethazine HCl 25 mg 01/19/21 23:47 Promethazine 25 Mg Rect Supp [place] Q6H PRN Nausea And Vomiting Sodium Chloride 10 ml 01/20/21 10:00 01/21/21 09:47 Sodium Chloride 0.9% 10 Ml Flush Syringe IV 10 ml BID ORI Administration Sodium Chloride 10 ml 01/19/21 23:47 Sodium Chloride 0.9% 10 Ml Flush Syringe IV PRN PRN LINE FLUSH Nutrition/Malnutrition Assess - Malnutrition Assessment Minimum of two criteria: No - Attestation Statement I have reviewed and agreed w/ Malnutrition eval & tx plan: Yes
--- NOTE | 2021-01-21 15:33 | Progress Note ---
Assessment and Plan 35 yo female with headache with right eye pain and left-sided weakness. 1. Acute TABLEAU DEVELOPER Demyelination - stat solumedrol 500 mg iv q12 (system does not allow to scheduled 5 days of treatment) x 20 doses total w/ gi prophylaxis; recommend MRI Cervical / Thoracic Spine w/ wo contrast; csf evaluation needed; more detailed exam needed at bedside that is not allowed via teleneurology; ddx: nmo, ms, mog, sarcoidosis, et; cta reveals no evidence of vasculitis; serological testing include, hiv, esr, crp, ricardo, covid-19 for now. 2. Recommend ophthalmology evaluation of right eye visual change. 3. Spoke to Dr. Antonio regarding transfer for bedside neurologic evaluation/exam, ophthalmologic evaluation, need for MR C/T Spine and CSF evaluation (including opening/closing pressure). May also need to repeat MR studies as orbital sequences/fat suppression sequences needed and may not be available at this facility. Plan is for transfer by tomorrow morning. Branden Ramos MD Neurology Subjective Date of service: 01/21/21 Principal diagnosis: Loss of Vision, Numbness, Unsteadiness Interval history: 35 yo female who notes fatigue since September of this year. Notes an episode of blurred vision involving the left eye in October of this year and it improved but it did not resolve completely. Then, on 01/17/21, she woke up with signficant loss of right eye vision with right eye pain. She was seen by the eye clinic on 01/19/21 but also notes that on 01/19/21 her left arm/leg felt numb. She notes currently, new onset of right facial numbness today. She was given steroid initially upon admission. Underwent MR Brain w/ wo contrast, CTA Head/Neck w/ wo contrast and MRV Head wo contrast. She also notes unsteadiness of gait and notes a "spring-like" feeling of her back that goes down from the neck to the lower back. Notes a strong family hx of htn but no known MS, Sarcoidosis, Lupus, or other autoimmune diseases. Notes her child was just diagnosed with possible CP. Objective - Exam Narrative Exam: Gen: nad, well-nourished; Head: normocephalic; Eyes: no gaze deviation; no ptosis; ENT: normal vocalization; CVS: warm and well-perfused; Pulm: no respiratory distress; GI: appears non-distended; Ext: no cyanosis at distal extremities; Skin: no acute rash or hives at distal extremities; Heme: no pathologic bruising or ecchymosis at distal extremities; Neuro: alert, oriented to name, age, month, year, surroundings, no dysarthria, no aphasia, CN 2 - PERRL w/ mild sluggishness of the right eye; no aniscoria appreciated; OD - severe deficit of the right eye w/ only the left upper quadrant able to see finger movement; OS - severe visual field deficit in all directions w/ central vision being intact, CN 3, 4, 6 - EOMI, CN 5 - facial sensation decreased at right V2/V3 to light touch, CN 7 - facial movement symmetric, CN 8 - hearing grossly intact, CN 9, 10 - uvula midline, CN 11 - shrug symmetric, CN 12 - tongue midline; Motor - at least 4+/5 in all exts; Sensory - light touch symmetric at BUEs and patchy at distal BLEs, Cerebellar - fnf /hts intact, Gait -unsteadiness of stance and gait noted; - Vital Sign Vital Signs - 12hr 01/21/21 03:54 Temperature 98.2 F Respiratory 14 Rate Blood Pressure 137/68 - Laboratory Findings CBC and BMP: 01/20/21 16:11 01/20/21 16:11 Abnormal Lab Findings: Abnormal Labs 01/19/21 01/20/21 01/20/21 21:33 16:11 16:11 [place] % (Auto) 8.8 H Seg Neuts % (Manual) 85.0 H Lymphocytes % (Manual) 11.0 L Lymphocytes # (Manual) 0.9 L Carbon Dioxide 20 L Glucose 111 H HDL Cholesterol 82 H
[2021-01-21] MEDS ORDERED: methylPREDNISolone Sod Suc 500 MG in SODIUM CHLORIDE 0.9% 100 ML IV SCH (16:00)
[2021-01-21] MEDS ORDERED: FAMOTIDINE 20 MG/2 ML INJ IV SCH (18:00)
[2021-01-21] MEDS: ENOXAPARIN 40 MG/0.4 ML INJ SUB-Q SCH (22:17)
[2021-01-22] MEDS ORDERED: methylPREDNISolone Sod Suc 500 MG in SODIUM CHLORIDE 0.9% 100 ML IV SCH (10:00)
[2021-01-22] MEDS ORDERED: FAMOTIDINE 20 MG/2 ML INJ IV SCH (10:00)
[2021-01-22] MEDS: ASPIRIN 325 MG TAB PO SCH (10:04)
--- NOTE | 2021-01-22 14:20 | Progress Note ---
Assessment and Plan Assessment and plan: Assessment and Plan Assessment and plan: Neuro work-up so far: MRI brain; demyelinating plaques, no acute or subacute infarcts MRA head; no abnormality CT head without contrast; no acute abnormality. Carotid Doppler; less than 50% stenosis echo; EF 55 to 60%, no PFO CTA head; no abnormality CTA neck; no abnormality Right eye pain /?optic neuritis Current Visit: No Status: Acute Plan to address problem: Patient commenced on IV steroids and analgesic medication. Neurology following , neuro work-up is in progress Do not have ophthalmology service, will refer to telephone maintainer After neuro evaluation is completed and if indicated Numbness and weakness on left side Current Visit: No Status: Acute Plan to address problem: Rule out CVA versus multiple sclerosis. Not a candidate for TPA Aspirin and statin Follow carotid Doppler, echocardiogram and MRI, MRA of the brain. Management per neurology PT OT rehab DVT prophylaxis Current Visit: No Status: Acute Plan to address problem: Patient placed on subcutaneous Lovenox. Full code status Current Visit: No Status: Acute Plan to address problem: Patient is a full code. We will closely monitor the patient and adjust management as needed Plan of care reviewed with the patient and her nurse Follow neuro evaluation and recommendations Disposition; follow neuro work-up; follow PT OT, follow neurology recommendations 01/20/2021; patient feels slightly better Follow neuro evaluation and recommendations , extensive neuro work-up is in progress Continue supportive care, patient needs ophthalmology evaluation[service not available] 01/21/21 Patient complaining of difficulty in swallow. Speech path is consulted Also complaining of right eye pain and difficulty vision, left-sided blurry vision, left-sided numbness Follow neuro evaluation and recommendation. Call neurologist for further recommendation. Continue current management. Patient needs ophthalmology evaluation but service not available. 01/22/21 Patient complained of difficulty in swallowing, speech path is consulted right eye pain and vision change, left-sided blurry vision and left-sided numbness Try to transfer the patient for neurology evaluation and ophthalmology evaluation. Waiting for response from [facility] and [facility]. Continue Solu-Medrol 500 mg IV every 12 hours. During current management Brief history; Patient is 35 years old female with no significant past medical history. Patient stated that she was fine until beginning of October when she had painful loss of vision on the left side associated with numbness to the left upper and lower extremity. Patient stated the symptoms continue for few days and went away. She stated that she has been having headache since then. Patient stated that since yesterday she started having pain in her right eye this time associated with numbness of the left upper and lower extremity. Patient denied any head injury. She also denied any focal weakness, no bowel or bladder incontinence. History Interval history: Patient is seen and examined the patient at the bedside this morning Patient's chart and medications reviewed Patient complained of difficulty in swallowing, speech path is consulted right eye pain and vision change, left-sided blurry vision and left-sided numbness Try to transfer the patient for neurology evaluation and ophthalmology evaluation. Waiting for response from [facility] and [facility]. Vital signs noted Hospitalist Physical - Constitutional Vitals: Temp Pulse Resp BP Pulse Ox 98.3 F 73 22 155/90 98 01/22/21 10:42 01/22/21 10:42 01/22/21 10:42 01/22/21 10:42 01/22/21 10:42 General appearance: Present: no acute distress, well-nourished - EENT Eyes: Present: EOM intact ENT: hearing intact - Neck Neck: Present: supple, normal ROM - Respiratory Respiratory: bilateral: diminished - Cardiovascular Rhythm: regular Heart Sounds: Present: S1 & S2 - Extremities Extremities: no ischemia, pulses intact Peripheral Pulses: within normal limits - Abdominal General gastrointestinal: soft, non-tender, non-distended - Psychiatric Psychiatric: appropriate mood/affect, intact judgment & insight - Neurologic Neurologic: CNII-XII intact, moves all extremities Results - Labs CBC & Chem 7: 01/20/21 16:11 01/20/21 16:11 Labs: Laboratory Last Values WBC 8.2 K/mm3 (4.5-11.0) 01/20/21 16:11 RBC 4.19 M/mm3 (3.65-5.03) 01/20/21 16:11 Hgb 12.9 gm/dl (10.1-14.3) 01/20/21 16:11 Hct 38.0 % (30.3-42.9) 01/20/21 16:11 MCV 91 fl (79-97) 01/20/21 16:11 MCH 31 pg (28-32) 01/20/21 16:11 MCHC 34 % (30-34) 01/20/21 16:11 RDW 14.4 % (13.2-15.2) 01/20/21 16:11 Plt Count 351 K/mm3 (140-440) 01/20/21 16:11 Lymph % (Auto) 28.8 % (13.4-35.0) 01/19/21 21:33 Pierce % (Auto) 8.8 % (0.0-7.3) H 01/19/21 21:33 Eos % (Auto) 0.7 % (0.0-4.3) 01/19/21 21:33 Baso % (Auto) 1.1 % (0.0-1.8) 01/19/21 21:33 Lymph # (Auto) 2.0 K/mm3 (1.2-5.4) 01/19/21 21:33 Pierce # (Auto) 0.6 K/mm3 (0.0-0.8) 01/19/21 21: Eos # (Auto) 0.0 K/mm3 (0.0-0.4) 01/19/21 21: Baso # (Auto) 0.1 K/mm3 (0.0-0.1) 01/19/21 21:33 Add Manual Diff Complete 01/20/21 16:11 Total Counted 100 01/20/21 16:11 Seg Neutrophils % [employer] [place] 01/20/21 16:11 Seg Neuts % (Manual) 85.0 % (40.0-70.0) H 01/20/21 16:11 Lymphocytes % (Manual) 11.0 % (13.4-35.0) L 01/20/21 16:11 Monocytes % (Manual) 4.0 % (0.0-7.3) 01/20/21 16:11 Nucleated RBC % Not Reportable 01/20/21 16:11 Seg Neutrophils # 4.2 K/mm3 (1.8-7.7) 01/19/21 21:33 Seg Neutrophils # Man 7.0 K/mm3 (1.8-7.7) 01/20/21 16:11 Band Neutrophils # 0.0 K/mm3 01/20/21 16:11 Lymphocytes # (Manual) 0.9 K/mm3 (1.2-5.4) L 01/20/21 16:11 Abs React Lymphs (Man) 0.0 K/mm3 01/20/21 16:11 Monocytes # (Manual) 0.3 K/mm3 (0.0-0.8) 01/20/21 16:11 Eosinophils # (Manual) 0.0 K/mm3 (0.0-0.4) 01/20/21 16:11 Basophils # (Manual) 0.0 K/mm3 (0.0-0.1) 01/20/21 16:11 Metamyelocytes # 0.0 K/mm3 01/20/21 16:11 Myelocytes # 0.0 K/mm3 01/20/21 16:11 Promyelocytes # 0.0 K/mm3 01/20/21 16:11 Blast Cells # 0.0 K/mm3 01/20/21 16:11 WBC Morphology Not Reportable 01/20/21 16:11 Hypersegmented Neuts Not Reportable 01/20/21 16:11 Hyposegmented Neuts Not Reportable 01/20/21 16:11 Hypogranular Neuts Not Reportable 01/20/21 16:11 Smudge Cells Not Reportable 01/20/21 16:11 Toxic Granulation Not Reportable 01/20/21 16:11 Toxic Vacuolation Not Reportable 01/20/21 16:11 Dohle Bodies Not Reportable 01/20/21 16:11 Pelger-Huet Anomaly Not Reportable 01/20/21 16:11 Gabino Rods Not Reportable 01/20/21 16:11 Platelet Estimate Not Reportable 01/20/21 16:11 Clumped Platelets Not Reportable 01/20/21 16:11 Plt Clumps, EDTA Not Reportable 01/20/21 16:11 Large Platelets Not Reportable 01/20/21 16:11 Giant Platelets Rare 01/20/21 16:11 Platelet Satelliting Not Reportable 01/20/21 16:11 Plt Morphology Comment Not Reportable 01/20/21 16:11 RBC Morphology Normal 01/20/21 16:11 Dimorphic RBCs Not Reportable 01/20/21 16:11 Polychromasia Not Reportable 01/20/21 16:11 Hypochromasia Not Reportable 01/20/21 16:11 Poikilocytosis Not Reportable 01/20/21 16:11 Anisocytosis Not Reportable 01/20/21 16:11 Microcytosis Not Reportable 01/20/21 16:11 Macrocytosis Not Reportable 01/20/21 16:11 Spherocytes Not Reportable 01/20/21 16:11 Pappenheimer Bodies Not Reportable 01/20/21 16:11 Sickle Cells Not Reportable 01/20/21 16:11 Target Cells Not Reportable 01/20/21 16:11 Tear Drop Cells Not Reportable 01/20/21 16:11 Ovalocytes Not Reportable 01/20/21 16:11 Helmet Cells Not Reportable 01/20/21 16:11 [place] Bodies Not Reportable 01/20/21 16:11 [place] Rings Not Reportable 01/20/21 16:11 Gregory Cells Not Reportable 01/20/21 16:11 Bite Cells Not Reportable 01/20/21 16:11 Crenated Cell Not Reportable 01/20/21 16:11 Elliptocytes Not Reportable 01/20/21 16:11 Acanthocytes (Spur) Not Reportable 01/20/21 16:11 Rouleaux Not Reportable 01/20/21 16:11 Hemoglobin C Crystals Not Reportable 01/20/21 16:11 Schistocytes Not Reportable 01/20/21 16:11 Malaria parasites Not Reportable 01/20/21 16:11 ESR 39 mm/Hr (0-20) 01/20/21 16:11 [place] Bodies Not Reportable 01/20/21 16:11 Hem Pathologist Commnt No 01/20/21 16:11 PT 12.8 Sec. (12.2-14.9) 01/20/21 16:11 INR 0.97 (0.87-1.13) 01/20/21 16:11 Sodium 138 mmol/L (137-145) 01/20/21 16:11 Potassium 4.3 mmol/L (3.6-5.0) 01/20/21 16:11 Chloride 102.7 mmol/L (98-107) 01/20/21 16:11 Carbon Dioxide 20 mmol/L (22-30) L 01/20/21 16:11 Anion Gap 20 mmol/L 01/20/21 16:11 BUN 11 mg/dL (7-17) 01/20/21 16:11 Creatinine 0.6 mg/dL (0.6-1.2) 01/20/21 16:11 Estimated GFR > 60 ml/min 01/20/21 16:11 BUN/Creatinine Ratio 18 % 01/20/21 16:11 Glucose 111 mg/dL (65-100) H 01/20/21 16:11 Calcium 9.2 mg/dL (8.4-10.2) 01/20/21 16:11 Total Bilirubin 0.40 mg/dL (0.1-1.2) 01/19/21 21:33 AST 24 units/L (5-40) 01/19/21 21:33 ALT 11 units/L (7-56) 01/19/21 21:33 Alkaline Phosphatase 72 units/L (35-129) 01/19/21 21:33 Total Protein 7.6 g/dL (6.3-8.2) 01/19/21 21:33 Albumin 3.9 g/dL (3.9-5) 01/19/21 21:33 Albumin/Globulin Ratio 1.1 % 01/19/21 21:33 Triglycerides 41 mg/dL (2-149) 01/20/21 16:11 Cholesterol 195 mg/dL (50-199) 01/20/21 16:11 LDL Cholesterol Direct 120 mg/dL (50-130) 01/20/21 16:11 HDL Cholesterol 82 mg/dL (40-59) H 01/20/21 16:11 Cholesterol/HDL Ratio 2.37 % 01/20/21 16:11 Urine HCG, Qual Negative (Negative) 01/19/21 21:46 Klein/IV: Voiding Method Toilet Active Medications - Current Medications Current Medications: Generic Name Dose Route Start Last Admin Trade Name Freq PRN Reason Stop Dose Admin Acetaminophen 650 mg 01/19/21 23:47 Acetaminophen 325 Mg Tab PO Q4H PRN Pain MILD(1-3)/Fever >100.5/ARAUJO Aspirin 325 mg 01/20/21 10:00 01/22/21 10:04 Aspirin 325 Mg Tab PO 325 mg QDAY ORI Administration Atorvastatin Calcium 40 mg 01/20/21 22:00 01/21/21 22:17 Atorvastatin 40 Mg Tab PO 40 mg QHS ORI Administration Bisacodyl 10 mg 01/19/21 23:47 Bisacodyl 10 Mg Rect Supp [place] QDAY PRN Constipation Enoxaparin Sodium 40 mg 01/20/21 22:00 01/21/21 22:17 Enoxaparin 40 Mg/0.4 Ml Inj SUB-Q 40 mg QDAY@2200 ORI Administration Protocol Famotidine 20 mg 01/22/21 10:00 01/22/21 10:04 Famotidine 20 Mg/2 Ml Inj IV 20 mg BID ORI Administration Methylprednisolone Sodium 100 mls @ 200 mls/hr 01/22/21 10:00 01/22/21 10:16 Succinate 500 mg/ Sodium IV 01/26/21 10:29 200 mls/hr Chloride Q12HR ORI Administration Magnesium Hydroxide 30 ml 01/19/21 23:47 Magnesium Hydroxide (Mom) Oral Liqd Udc PO Q4H PRN Constipation Metoclopramide HCl 10 mg 01/19/21 23:47 Metoclopramide 10 Mg Tab PO Q6H PRN Nausea And Vomiting Morphine Sulfate 2 mg 01/19/21 23:47 01/21/21 22:26 Morphine 2 Mg/1 Ml Inj IV 2 mg Q4H PRN Administration Pain, Moderate (4-6) Ondansetron HCl 4 mg 01/19/21 23:47 Ondansetron 4 Mg/2 Ml Inj IV Q8H PRN Nausea And Vomiting Promethazine HCl 25 mg 01/19/21 23:47 Promethazine 25 Mg Rect Supp [place] Q6H PRN Nausea And Vomiting Sodium Chloride 10 ml 01/20/21 10:00 01/22/21 10:05 Sodium Chloride 0.9% 10 Ml Flush Syringe IV 10 ml BID ORI Administration Sodium Chloride 10 ml 01/19/21 23:47 Sodium Chloride 0.9% 10 Ml Flush Syringe IV PRN PRN LINE FLUSH Nutrition/Malnutrition Assess - Malnutrition Assessment Minimum of two criteria: No - Attestation Statement I have reviewed and agreed w/ Malnutrition eval & tx plan: Yes
--- NOTE | 2021-01-22 14:46 | Discharge Summary ---
Providers - Providers Date of Admission: 01/19/21 23:24 Date of discharge: 01/22/21 Attending physician: ERMA WILEY MD 01/19/21 23:47 Consult to Physician [CONS] Routine Comment: Consulting Provider: DALE DOWNS Physician Instructions: Reason For Exam: Left upper extremity 01/19/21 23:48 Occupational Therapy Evaluate and Treat [CONS] Routine Comment: Reason For Exam: Neuro deficits Physical Therapy Evaluation and Treat [CONS] Routine Comment: Reason For Exam: Neuro deficits 01/21/21 11:04 Speech Therapy Evaluation and Treat [CONS] Routine Reason For Exam: difficulty swallowing Primary care physician: HOTEL DESK CLERK Hospitalization Reason for admission: Right vision difficulty and pain. Left eye blurriness. Left upper and low Condition: Fair Disposition: DC/TX-70 ANOTHER TYPE HLTHCARE Final Discharge Diagnosis (Prints w/discharge instructions): Right eye vision difficulty and pain. Right facial numbness. Left eye blurriness. Left upper and lower extremity numbness Time spent for discharge: 40 - Discharge Diagnoses (1) Multiple sclerosis Status: Acute Core Measure Documentation - Palliative Care Palliative Care/ Comfort Measures: Not Applicable - Core Measures Any of the following diagnoses?: none Exam - Constitutional Vitals: Temp Pulse Resp BP Pulse Ox 98.3 F 73 22 155/90 98 01/22/21 10:42 01/22/21 10:42 01/22/21 10:42 01/22/21 10:42 01/22/21 10:42 General appearance: Present: no acute distress, well-nourished - EENT Eyes: Present: PERRL ENT: hearing intact, clear oral mucosa - Neck Neck: Present: supple, normal ROM - Respiratory Respiratory effort: normal Respiratory: bilateral: CTA - Cardiovascular Heart Sounds: Present: S1 & S2. Absent: rub, click - Extremities Extremities: pulses symmetrical, No edema Peripheral Pulses: within normal limits - Abdominal General gastrointestinal: Present: soft, non-tender, non-distended, normal bowel sounds Female genitourinary: Present: normal - Integumentary Integumentary: Present: clear, warm, dry - Musculoskeletal Musculoskeletal: gait normal, strength equal bilaterally - Psychiatric Psychiatric: appropriate mood/affect, intact judgment & insight - Neurologic Neurologic: moves all extremities, other (Right eye pain and difficulty in vision. Left eye blurriness. Left upper and lower extremity numbness. Right facial numbness) Plan Activity: advance as tolerated, no driving until cleared by PCP Diet: low fat, low cholesterol, low salt Follow up with: PRIMARY CARE, [Primary Care Provider] - 7 Days
[2021-01-22 19:59] VITALS: BP 131/78
== END 2021-01-22 20:00 | disposition short-term general hospital (02) | DRG 59 ==
LOC: ED 21:25 → 3A 23:24
PROVIDERS: ADMIT Internal Medicine Geriatric Medicine; ATTEND Hospitalist
DX: G35 Multiple sclerosis (principal); H46.9 Unspecified optic neuritis; H57.11 Ocular pain, right eye; R20.0 Anesthesia of skin; Z88.2 Allergy status to sulfonamides; Z98.51 Tubal ligation status
CPT/HCPCS: 36415; 70450; 70496; 70498; 70544; 70553; 80048; 80053; 80061; 81025; 85007; 85025; 85610; 85652; 93306; 93880; 96365; G0378; A9270-GY; A9575; J1100; J1200; J1650; J2270; J2765; J2930; J7030; Q9967

== ENCOUNTER 2021-07-28 14:23 | Emergency (ER) | payer MEDICAID ==
--- NOTE | 2021-07-28 14:35 | Emergency Department Report ---
ED General Adult HPI - General Stated complaint: FEEDING TIBE PUI?: No Time Seen by Provider: 07/28/21 14:34 Source: patient Mode of arrival: Ambulatory Limitations: No Limitations - History of Present Illness Initial comments: here for peg tube dressing change SEE DOWN TIME FORMS - Related Data Previous Rx's Medication Instructions Recorded Last Taken Type Acetaminophen [Acetaminophen TAB] 650 mg PO Q4H PRN tablet 01/22/21 Unknown Rx Aspirin 325 mg PO QDAY tablet 01/22/21 Unknown Rx AtorvaSTATin [Lipitor] 40 mg PO QHS tablet 01/22/21 Unknown Rx Enoxaparin 40 mg SUB-Q QDAY@2200 syringe 01/22/21 Unknown Rx Allergies Allergy/AdvReac Type Severity Reaction Status Date / Time Sulfa (Sulfonamide Allergy Hives Verified 01/29/20 10:17 Antibiotics) ED Review of Systems ROS: Stated complaint: FEEDING TIBE Other details as noted in HPI Comment: All other systems reviewed and negative ED Past Medical Hx - Past Medical History Previous Medical History?: Yes Hx Congestive Heart Failure: No Hx Diabetes: No Hx Asthma: No Hx COPD: No - Surgical History Past Surgical History?: Yes Additional Surgical History: tubal ligation - Family History Family history: no significant - Social History Smoking Status: Never Smoker Substance Use Type: None - Medications Home Medications: Home Medications Medication Instructions Recorded Confirmed Last Taken Type Acetaminophen [Acetaminophen TAB] 650 mg PO Q4H PRN tablet 01/22/21 Unknown Rx Aspirin 325 mg PO QDAY tablet 01/22/21 Unknown Rx AtorvaSTATin [Lipitor] 40 mg PO QHS tablet 01/22/21 Unknown Rx Enoxaparin 40 mg SUB-Q QDAY@2200 syringe 01/22/21 Unknown Rx ED Physical Exam - General General appearance: alert, in no apparent distress - Head Head exam: Present: atraumatic, normocephalic - Eye Eye exam: Present: normal appearance - ENT ENT exam: Present: mucous membranes moist - Neck Neck exam: Present: normal inspection - Respiratory Respiratory exam: Present: normal lung sounds bilaterally. Absent: respiratory distress - Cardiovascular Cardiovascular Exam: Present: regular rate, normal rhythm. Absent: systolic murmur, diastolic murmur, rubs, gallop - GI/Abdominal GI/Abdominal exam: Present: soft, normal bowel sounds - Extremities Exam Extremities exam: Present: normal inspection - Back Exam Back exam: Present: normal inspection - Neurological Exam Neurological exam: Present: alert, oriented X3 - Psychiatric Psychiatric exam: Present: normal affect, normal mood - Skin Skin exam: Present: warm, dry, intact, normal color. Absent: rash ED Medical Decision Making - Medical Decision Making SEE DOWN TIME FORMS Critical care attestation.: If time is entered above; I have spent that time in minutes in the direct care of this critically ill patient, excluding procedure time. ED Disposition Clinical Impression: Feeding tube dysfunction Qualifiers: Encounter type: initial encounter Qualified Code(s): T85.598A - Other mechanical complication of other gastrointestinal prosthetic devices, implants and grafts, initial encounter Disposition: 01 HOME / SELF CARE / HOMELESS Is pt being admited?: No Does the pt Need Aspirin: No Condition: Stable Referrals: PRIMARY CARE, [Primary Care Provider] - 3-5 Days Time of Disposition: 14:35
== END 2021-07-28 15:15 | disposition home or self-care (01) ==
LOC: ED 14:23
DX: K94.23 Gastrostomy malfunction (principal)
CPT/HCPCS: 99281

== ENCOUNTER 2021-08-23 09:22 | Emergency (ER) | payer MEDICAID ==
[2021-08-23 09:42] VITALS: BP 147/94
--- NOTE | 2021-08-23 10:29 | Emergency Department Report ---
HPI - General Chief Complaint: Abdominal Pain Time Seen by Provider: 08/23/21 09:58 - HPI HPI: 35-year-old -Filipino female presents to the emergency department with concern of infection around her feeding tube and abdominal pain. The patient had the PEG tube placed in May of this year, at [facility], secondary to her multiple sclerosis. She says that she has been having abdominal pain for "a while", and that she often does have some drainage around the feeding tube, but yesterday the drainage increased and was greenish in color. She says that "my surgeon told me that they get concerned about green drainage and to come to the hospital." She denies any fever, dysuria, vaginal bleeding or discharge, constipation, diarrhea. She has not taken anything for symptoms prior to presentation today. ED Past Medical Hx - Past Medical History Hx Congestive Heart Failure: No Hx Diabetes: No Hx Asthma: No Hx COPD: No - Surgical History Additional Surgical History: tubal ligation - Social History Smoking Status: Never Smoker Substance Use Type: None - Medications Home Medications: Home Medications Medication Instructions Recorded Confirmed Last Taken Type Acetaminophen [Acetaminophen TAB] 650 mg PO Q4H PRN tablet 01/22/21 Unknown Rx Aspirin 325 mg PO QDAY tablet 01/22/21 Unknown Rx AtorvaSTATin [Lipitor] 40 mg PO QHS tablet 01/22/21 Unknown Rx Enoxaparin 40 mg SUB-Q QDAY@2200 syringe 01/22/21 Unknown Rx ED Review of Systems ROS: Stated complaint: FEEDING TUBE PROBLEM Other details as noted in HPI Comment: All other systems reviewed and negative Constitutional: denies: chills, fever Eyes: denies: eye pain, vision change ENT: denies: ear pain, throat pain Respiratory: denies: cough, shortness of breath Cardiovascular: denies: chest pain, palpitations Gastrointestinal: abdominal pain. denies: nausea, vomiting Genitourinary: denies: dysuria, discharge Musculoskeletal: denies: back pain, arthralgia Skin: denies: rash, lesions Neurological: denies: headache, weakness Physical Exam - Physical Exam Vital Signs: Vital Signs 08/23/21 09:41 Temperature 98.2 F Pulse Rate 99 H Respiratory 16 Rate Blood Pressure 147/94 O2 Sat by Pulse 99 Oximetry Physical Exam: GENERAL: The patient is well-developed well-nourished. HENT: Normocephalic. Atraumatic. Patient has moist mucous membranes. EYES: Extraocular motions are intact. NECK: Supple. Trachea is midline. CHEST/LUNGS: Clear to auscultation. There is no respiratory distress noted. HEART/CARDIOVASCULAR: Regular. There is no tachycardia. There is no murmur. ABDOMEN: Abdomen is soft. There is some epigastric and left upper quadrant abdominal tenderness to palpation. Patient has normal bowel sounds. There is no abdominal distention. Feeding tube in place to the left middle to upper quadrant of the abdomen. There is a small amount of greenish discharge seen coming from the stoma. SKIN: Skin is warm and dry. NEURO: The patient is awake, alert, and oriented. The patient is cooperative. Normal speech. MUSCULOSKELETAL: There is no tenderness or deformity. There is no limitation range of motion. ED Course Vital Signs 08/23/21 09:41 Temperature 98.2 F Pulse Rate 99 H Respiratory 16 Rate Blood Pressure 147/94 O2 Sat by Pulse 99 Oximetry ED Medical Decision Making - Medical Decision Making This patient presented to the emergency department for evaluation of some abdominal pain and greenish discharge coming around her feeding tube that she felt may be a sign of infection. On examination she has some reproducible epigastric and left upper quadrant abdominal tenderness to palpation. There is some greenish discharge seen to the gauze around the feeding tube and a small amount coming from the stoma. After my examination I told the patient that we would be getting some blood work and potentially she may need a CT scan of the abdomen and pelvis. Patient initially agreed but as soon as I left it appears that the patient refused any labs or further work-up, and she has signed out A GAINST MEDICAL ADVICE. Critical Care Time: No Critical care attestation.: If time is entered above; I have spent that time in minutes in the direct care of this critically ill patient, excluding procedure time. ED Disposition Clinical Impression: Abdominal pain, Complication of feeding tube Disposition: 07 LEFT AGAINST MEDICAL ADVICE Is pt being admited?: No Condition: Stable Instructions: Abdominal Pain (ED)
== END 2021-08-23 10:44 | disposition left against medical advice (07) ==
LOC: ED 09:22
DX: K94.20 Gastrostomy complication, unspecified (principal); Z88.2 Allergy status to sulfonamides; Z98.51 Tubal ligation status; Y84.8 Other medical procedures as the cause of abnormal reaction of the patient, or of later complication, without mention of misadventure at the time of the procedure
CPT/HCPCS: 99282